=== PATIENT | male | born 2000 | race Caucasian/White ===

== ENCOUNTER 2020-01-28 01:32 | Emergency (ER) | payer OTHER ==
[~2020-01-28] VITALS: Ht 180.3 cm; Wt 102.3 kg
[2020-01-28 01:42] VITALS: BP 129/71
[2020-01-28] MEDS ORDERED: METAL LOCK LOOP XX ONE (01:53)
== END 2020-01-28 04:09 | disposition home or self-care (01) ==
LOC: M ED 01:32
DX: T33.821A Superficial frostbite of right foot, initial encounter (principal); T33.822A Superficial frostbite of left foot, initial encounter; X31.XXXA Exposure to excessive natural cold, initial encounter; Y92.138 Other place on military base as the place of occurrence of the external cause; Y99.1 Military activity

== ENCOUNTER 2020-02-08 09:27 | Emergency (ER) | payer OTHER ==
[~2020-02-08] VITALS: Ht 180.3 cm; Wt 103.4 kg
--- NOTE | 2020-02-08 10:31 | REP ---
CT study of the cervical spine without contrast: History: Trauma. Injury in a 6 feet fall. Technique: Helical scanning is acquired and overlapping 2 mm high resolution axial images were generated and reviewed at bone and soft tissue window settings. Coronal and sagittal multiplanar re-formations images are generated. CT findings: There is no evidence of cervical spine element fracture. No skull base fracture is seen. Cervical vertebral body heights are preserved. Alignment is normal. Facet joints are normally aligned bilaterally at each cervical level on multiplanar re-formations images. There is no evidence of intraspinal or paraspinal hematoma. No extra vertebral abnormality is seen. Impression: Negative CT study of the cervical spine without contrast. No fracture seen. Electronically Signed by Tanner Capone MD 02/08/2020 10:23 A
--- NOTE | 2020-02-08 10:42 | REP ---
Right shoulder three view : There is no fracture or dislocation. Mineralization and joint spaces are normal. There are no calcifications or foreign bodies. Impression: Negative right shoulder . Electronically Signed by Andreas Pineda MD 02/08/2020 10:34 A
--- NOTE | 2020-02-08 10:43 | REP ---
CT BRAIN WITHOUT CONTRAST: HISTORY: Injury in a 6 feet fall. Head injury. No comparison study. CT FINDINGS: Digital preliminary drum builder radiographs are unremarkable. Bone window settings demonstrate an intact bony calvarium. No skull fractures seen. There is a mucous retention cyst in the posterior aspect of the left maxillary sinus. No intraorbital abnormality is seen. The visualized paranasal sinuses are otherwise clear. No significant scalp hematoma is appreciated. On soft tissue window settings, lateral, third, and fourth ventricles are normal in size and position. Rivera-white differentiation pattern is normal above below the tentorium. There is no evidence of intracranial hemorrhage. No mass, extra-axial fluid collection, infarct or midline shift is seen. IMPRESSION: Negative CT study of the brain without contrast. No skull fracture or intracranial injury seen. Electronically Signed by Tanner Capone MD 02/08/2020 12:38 P
--- NOTE | 2020-02-08 10:44 | REP ---
Right hand for views : There is no fracture or dislocation. Mineralization and joint spaces are normal. There are no calcifications or foreign bodies. Impression: Negative right hand . Electronically Signed by Andreas Pineda MD 02/08/2020 10:36 A
--- NOTE | 2020-02-08 10:44 | REP ---
AP pelvis: No pelvic fracture is identified. The sacroiliac articulations are unremarkable. The hip articulations are unremarkable. There is a cone spray artifact superimposed over the L5 vertebral body. Impression: No pelvic fracture. Otherwise, negative AP pelvis except for a coiled spurring artifact. Left hip two views: There is no fracture or dislocation. Mineralization and joint space are unremarkable. There are no calcifications or foreign bodies. Impression: Negative left hip. Electronically Signed by Andreas Pineda MD 02/08/2020 10:36 A
[2020-02-08 11:05] VITALS: BP 129/75
== END 2020-02-08 11:07 | disposition home or self-care (01) ==
LOC: M ED 09:27
DX: S63.621A Sprain of interphalangeal joint of right thumb, initial encounter (principal); S70.02XA Contusion of left hip, initial encounter; S16.1XXA Strain of muscle, fascia and tendon at neck level, initial encounter; S09.90XA Unspecified injury of head, initial encounter; W17.89XA Other fall from one level to another, initial encounter; Y92.9 Unspecified place or not applicable; Y93.9 Activity, unspecified; Y99.1 Military activity